=== PATIENT | female | born 1985 | race Caucasian/White ===

== ENCOUNTER 2021-11-19 15:36 | Inpatient (IN) | payer OTHER ==
[2021-11-19 18:11] VITALS: BMI 41.3
[2021-11-19] MEDS ORDERED: LOPERAMIDE HCL 2 MG CAPSULE PO PRN (19:31)
[2021-11-19] MEDS ORDERED: MAGNESIUM HYDROX 2400MG/30ML ORAL SUSPENSION 30 ML CUP PO PRN (19:31)
[2021-11-19] MEDS ORDERED: ACETAMINOPHEN 325 MG TABLET (FP) PO PRN ×2 (19:31)
[2021-11-19] MEDS ORDERED: MAG HYDROX/AL HYDROX/SIMETH 30 ML UNIT-DOSE CUP PO PRN (19:31)
[2021-11-19] MEDS ORDERED: BENZOCAINE/MENTHOL (CHLORASEPTIC ) LOZENGE MM PRN (19:31)
[2021-11-19] MEDS ORDERED: ONDANSETRON *ODT* 4 MG TABLET SL PRN (19:31)
[2021-11-19] MEDS ORDERED: IBUPROFEN 600 MG TABLET (FP) PO PRN (19:31)
[2021-11-19] MEDS ORDERED: BISMUTH SUBSALICYLATE 524 MG/30 ML PO PRN (19:31)
[2021-11-19] MEDS ORDERED: MAGNESIUM CITRATE 300 ML BOTTLE PO PRN (19:31)
[2021-11-19] MEDS ORDERED: NICOTINE 10 MG CARTRIDGE (INHALER) IH PRN (19:31)
[2021-11-19] MEDS ORDERED: DICYCLOMINE HCL 10 MG CAPSULE PO PRN (19:31)
[2021-11-19] MEDS ORDERED: IBUPROFEN 400 MG TABLET (FP) PO PRN (19:31)
[2021-11-19] MEDS ORDERED: diazePAM 5 MG TABLET ONE (19:47)
[2021-11-19] MEDS: diazePAM 5 MG TABLET PO SCH ×2 (19:48→22:21)
[2021-11-19] MEDS: MELATONIN 5 MG TABLETS PO SCH (22:20)
[2021-11-19] MEDS: hydrOXYzine PAMOATE 25 MG CAPSULE (FP) PO SCH (22:21)
[2021-11-19] MEDS: THIAMINE HCL 100 MG TABLET (FP) PO SCH (22:21)
[2021-11-19] MEDS: METHOCARBAMOL 500 MG TABLET PO PRN (22:23)
[2021-11-20] MEDS: hydrOXYzine PAMOATE 25 MG CAPSULE (FP) PO SCH ×5 (05:58→22:36)
[2021-11-20] MEDS: diazePAM 5 MG TABLET PO SCH ×4 (05:58→22:36)
[2021-11-20] MEDS ORDERED: methaDONE HCL 10 MG TABLET PO SCH (09:30)
[2021-11-20] MEDS: PRENATAL VITAMINS W/ FOLIC ACID TABLET (FP) PO SCH (10:50)
[2021-11-20] MEDS: NICOTINE 7 MG/24 HOURS TOPICAL PATCH TD SCH (10:52)
[2021-11-20] MEDS: NICOTINE 10 MG CARTRIDGE (INHALER) IH PRN ×2 (10:56→17:55)
[2021-11-20 11:58] LABS: HEMATOCRIT 37.2 % (32.4-45.2); HEMOGLOBIN 12.4 GM/dL (10.7-15.3); MCH 29.4 pg (25.7-33.7); MCHC 33.2 g/dl (32.0-36.0); MEAN CELL VOLUME 88.4 fl (80-96); MEAN PLT VOLUME 8.6 fl (7.5-11.1); PLATELET COUNT 299 10^3/uL (134-434); RBC 4.21 M/mm3 (3.60-5.2); RDW 14.9 % (11.6-15.6)
[2021-11-20 12:30] LABS: ALBUMIN 3.3 g/dl (3.4-5.0); BLOOD UREA NITROGEN 9.4 mg/dL (7-18); CALCIUM 8.7 mg/dL (8.5-10.1)
[2021-11-20 12:33] LABS: CREATININE 0.8 mg/dL (0.55-1.3)
[2021-11-20 12:34] LABS: BILIRUBIN,TOTAL 0.4 mg/dL (0.2-1); TOT PROT 6.7 g/dl (6.4-8.2)
[2021-11-20 15:58] LABS: HIV INTERPRETATION NEGATIVE (NEGATIVE)
[2021-11-20] MEDS: MELATONIN 5 MG TABLETS PO SCH (22:36)
[2021-11-20] MEDS: THIAMINE HCL 100 MG TABLET (FP) PO SCH (22:36)
[2021-11-21] MEDS: hydrOXYzine PAMOATE 25 MG CAPSULE (FP) PO SCH ×5 (05:36→22:27)
[2021-11-21] MEDS: diazePAM 5 MG TABLET PO SCH ×3 (05:36→22:27)
[2021-11-21] MEDS: NICOTINE 10 MG CARTRIDGE (INHALER) IH PRN ×4 (05:38→17:43)
[2021-11-21] MEDS: NICOTINE 7 MG/24 HOURS TOPICAL PATCH TD SCH (10:41)
[2021-11-21] MEDS: diazePAM 5 MG TABLET PO PRN ×2 (10:42→17:44)
[2021-11-21] MEDS: FLUoxetine HCL 20 MG CAPSULE PO SCH (10:42)
[2021-11-21] MEDS: PRENATAL VITAMINS W/ FOLIC ACID TABLET (FP) PO SCH (10:42)
[2021-11-21] MEDS: THIAMINE HCL 100 MG TABLET (FP) PO SCH (22:27)
[2021-11-21] MEDS: MELATONIN 5 MG TABLETS PO SCH (22:27)
[2021-11-22] MEDS: hydrOXYzine PAMOATE 25 MG CAPSULE (FP) PO SCH ×5 (06:07→22:18)
[2021-11-22] MEDS: NICOTINE 10 MG CARTRIDGE (INHALER) IH PRN ×5 (06:07→22:18)
[2021-11-22] MEDS: diazePAM 5 MG TABLET PO SCH ×2 (06:07→18:01)
[2021-11-22] MEDS: PRENATAL VITAMINS W/ FOLIC ACID TABLET (FP) PO SCH (10:55)
[2021-11-22] MEDS: NICOTINE 7 MG/24 HOURS TOPICAL PATCH TD SCH (10:55)
[2021-11-22] MEDS: FLUoxetine HCL 20 MG CAPSULE PO SCH (10:56)
[2021-11-22] MEDS: diazePAM 5 MG TABLET PO PRN (10:57)
[2021-11-22] MEDS: MELATONIN 5 MG TABLETS PO SCH (22:18)
[2021-11-22] MEDS: THIAMINE HCL 100 MG TABLET (FP) PO SCH (22:18)
[2021-11-22] MEDS: METHOCARBAMOL 500 MG TABLET PO PRN (22:21)
[2021-11-23] MEDS: hydrOXYzine PAMOATE 25 MG CAPSULE (FP) PO SCH ×2 (05:58→10:17)
[2021-11-23] MEDS: NICOTINE 10 MG CARTRIDGE (INHALER) IH PRN ×2 (05:58→10:17)
[2021-11-23] MEDS ORDERED: diazePAM 5 MG TABLET PO ONE (06:00)
[2021-11-23 07:14] VITALS: BP 92/60; PULSE 66; RESP 18; TEMP 96.9
[2021-11-23] MEDS: PRENATAL VITAMINS W/ FOLIC ACID TABLET (FP) PO SCH (10:17)
[2021-11-23] MEDS: NICOTINE 7 MG/24 HOURS TOPICAL PATCH TD SCH (10:17)
[2021-11-23] MEDS: FLUoxetine HCL 20 MG CAPSULE PO SCH (10:17)
== END 2021-11-23 11:35 | disposition home or self-care (01) | DRG 773 ==
LOC: YASAS 15:36 → Y3N 20:04
PROVIDERS: ADMIT Allergy & Immunology; ATTEND Surgery
PROC: HZ2ZZZZ Detoxification Services for Substance Abuse Treatment (ICD-10-PCS; principal; 2021-11-19)
DX: F11.23 Opioid dependence with withdrawal (principal); F13.20 Sedative, hypnotic or anxiolytic dependence, uncomplicated; F17.210 Nicotine dependence, cigarettes, uncomplicated; F32.A Depression, unspecified; E66.01 Morbid (severe) obesity due to excess calories; Z68.41 Body mass index [BMI] 40.0-44.9, adult; Z86.79 Personal history of other diseases of the circulatory system; Z88.0 Allergy status to penicillin; Z91.018 Allergy to other foods
CPT/HCPCS: 36415; 80053; 85027; 86780; 87389; 87811; C9803-CS; U0003; U0005